=== PATIENT | male | born 1995 ===

== ENCOUNTER 2022-02-28 00:27 | Emergency (ER) | payer OTHER ==
[2022-02-28] MEDS ORDERED: Diphtheria,Pertussis(Acell),Tetanus Vaccine 0.5 ML Syringe IM ONE (00:59)
[2022-02-28] MEDS ORDERED: Cephalexin 500 MG Cap PO STA (00:59)
== END 2022-02-28 01:20 | disposition home or self-care (01) ==
LOC: MW.ED 00:27
DX: S80.812A Abrasion, left lower leg, initial encounter (principal); L03.116 Cellulitis of left lower limb; Z23 Encounter for immunization; W22.09XA Striking against other stationary object, initial encounter
CPT/HCPCS: 90471; 90715; 99283; A9270